=== PATIENT | male | born 1985 | race Caucasian/White ===

== ENCOUNTER → 2016-12-01 10:43 | Emergency (ER) | payer MEDICAID, OTHER ==
[~2016-12-01 10:43] MED LIST: Ketorolac INJ* 60 MG/2 ML VIAL IM ONE
[2016-12-01 10:54] VITALS: BP 126/75
--- NOTE | 2016-12-01 11:37 | ED ---
Lower Extremity - HPI Summary HPI Summary: Patient is a 31yo male with a history or arthritis who arrives to ED with CC of left knee pain and swelling 2 days after trauma. He states while working, a co- worker hit him in the knee with a rake handle. He notes to severe swelling at that time and throughout the next day. Swelling and pain improves with ice and ibuprofen, but he doesn't feel comfortable taking ibuprofen at work d/t side effect of sleepiness. He has never injured the joint before. He notes pain in the superior portion of the knee around the patella. He also notes that pain radiates to the medial side of the left knee. Denies any other pain. Swelling is minimal after icing. He denies history of gout or family history of gout. He is not an IV drug user and denies previous joint space infections. He arrives today to make certain nothing is fractured and would like something for the pain and swelling. - History of Current Complaint Chief Complaint: EDExtremityLower Stated Complaint: KNEE PAIN Time Seen by Provider: 12/01/16 10:58 Hx Obtained From: Patient Mechanism Of Injury: Blunt Trauma Onset of Pain: Immediate Onset/Duration: Days Severity Initially: Moderate Severity Currently: Moderate Pain Intensity: 8 Pain Scale Used: 0-10 Numeric Timing: Constant Location: Is Discrete @ - superior portion of the knee Character Of Pain: Sharp Associated Signs And Symptoms: Positive: Swelling, Knee Pain Aggravating Factor(s): Standing, Ambulation, Weight Bearing Alleviating Factor(s): Rest, Elevation, Ice Able to Bear Weight: Yes - Risk Factors Gout Risk Factors: Male DVT Risk Factors: Negative Septic Arthritis Risk Factor: Negative - Allergies/Home Medications Allergies/Adverse Reactions: Allergies Allergy/AdvReac Type Severity Reaction Status Date / Time Sulfamethoxazole Allergy Severe Anaphylatic Verified 12/01/16 10:52 w/Trimethoprim Shock [From Bactrim] Amoxicillin AdvReac Intermediate Swelling Verified 12/01/16 10:52 Cefuroxime [From Ceftin] AdvReac Intermediate Rash And Verified 12/01/16 10:52 Itching PMH/Surg Hx/FS Hx/Imm Hx Previously Healthy: Yes Endocrine/Hematology History: 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 Denies: Hx Diabetes Cardiovascular History: Denies: Hx Hypertension, Hx Pacemaker/ICD History: Denies: Hx Renal Disease Neurological History: Denies: Hx Seizures - Cancer History Cancer Type, 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 Infectious Disease History: No Infectious Disease History: Denies: Hx Hepatitis, Hx Human Immunodeficiency Virus (HIV), Traveled Outside the [place] in Last 30 Days - Family History Known Family History: Positive: None - reviewed & noncontributory - Social History Occupation: Employed Full-time Lives: With Family Alcohol Use: Rare Hx Substance Use: Yes Substance Use Type: Reports: Marijuana Hx Tobacco Use: Yes Smoking Status (MU): Heavy Every Day Tobacco Smoker Review of Systems Constitutional: Negative Eyes: Negative Cardiovascular: Negative Respiratory: Negative Positive: Arthralgia - pain in left knee - superior to the patella and over medial aspect Skin: Negative Neurological: Negative Psychological: Normal All Other Systems Reviewed And Are Negative: Yes Physical Exam Triage Information Reviewed: Yes Vital Signs On Initial Exam: Initial Vitals Temp Pulse Resp BP Pulse Ox 97.8 F 98 18 126/75 100 12/01/16 10:52 12/01/16 10:52 12/01/16 10:52 12/01/16 10:52 12/01/16 10:52 Vital Signs Reviewed: Yes Appearance: Positive: Well-Appearing, Well-Nourished Skin: Positive: Warm, Skin Color Reflects Adequate Perfusion Eyes: Positive: Normal, MIGUEL Neck: Positive: Supple, No Lymphadenopathy Respiratory/Lung Sounds: Positive: Clear to Auscultation, Breath Sounds Present Cardiovascular: Positive: RRR, Pulses are Symmetrical in both Upper and Lower Extremities Musculoskeletal: Positive: Limited @ - left knee pain - superior portion of the patella and medial side of the left knee on palpation. swelling noted over superior aspect. No bakers cyst or other deformities noted. Neurological: Positive: Sensory/Motor Intact, Alert, Oriented to Person Place, Time, Speech Normal Psychiatric: Positive: Normal AVPU Assessment: Alert - Anni Coma Scale Best Eye Response: 4 - Spontaneous Best Motor Response: 6 - Obeys Commands Best Verbal Response: 5 - Oriented Diagnostics - Vital Signs Vital Signs Temp Pulse Resp BP Pulse Ox 12/01/16 10:52 97.8 F 98 18 126/75 100 - Laboratory Lab Statement: Any lab studies that have been ordered have been reviewed, and results considered in the medical decision making process. Lower Extremity Course/Dx - Course Course Of Treatment: Patient sent to xray to r/o fracture. Xray shows anterior knee swelling with no associated fracture. Patient encouraged to use ibuprofen for 3 days and wear knee brace. Ector wrapped for comfort. Follow up with Dr. Ojeda. Patient agrees. Provider also gave information to obtain a PCP in the area. - Diagnoses Differential Diagnosis/HQI/PQRI: Positive: Bursitis, Contusion, Tendonitis Provider Diagnoses: Knee swelling Discharge - Discharge Plan Condition: Stable Disposition: HOME Patient Education Materials: Knee Pain (ED) Referrals: No Primary Care Phys,NOPCP [Primary Care Provider] - hCristofer Ojeda MD [Medical Doctor] - [facility] [Provider Group] Additional Instructions: Obtain a PCP. I have give you information. Follow up with Dr. Ojeda. You may use a knee brace for comfort. These are over the counter. If any symptoms become worse, come back to ED. Ibuprofen 600mg three times daily for 3 days. Do not take immediately before bed and always take with food.
--- NOTE | 2016-12-01 12:10 | RAD ---
INDICATION: Left knee injury. TECHNIQUE: 2 views of the left knee were obtained. FINDINGS: There is soft tissue swelling present along the anterior aspect of the knee. The bones are in normal alignment. No joint effusion or fracture is seen. Joint spaces appear maintained. IMPRESSION: NO EVIDENCE FOR FRACTURE.
== END | disposition home or self-care (01) ==
LOC: ED 10:43
DX: R60.0 Localized edema (principal); M25.562 Pain in left knee
CPT/HCPCS: 96372; 99282; J1885